=== PATIENT | female | born 1975 | race Caucasian/White ===

== ENCOUNTER 2020-11-02 06:50 | Day surgery (SDC) | payer BC ==
[~2020-11-02 06:50] MED LIST: Lactated Ringers 1,000 ML IV SCH
[2020-11-02] MEDS: CEFAZOLIN 2 GM-D5W BAG** 2 GM/50 ML ML IV SCH ×2 (07:00→07:02)
[2020-11-02] MEDS ORDERED: SUBLIMAZE 100 MCG/2 ML ONE (08:54)
[2020-11-02] MEDS ORDERED: Versed 2 MG/2 ML Injection ONE (08:54)
[2020-11-02] MEDS ORDERED: DIPRIVAN 200 MG/20 ML IV ONE (08:54)
[2020-11-02] MEDS ORDERED: Zofran 4 MG/2 ML VIAL ONE (08:56)
[2020-11-02] MEDS ORDERED: Decadron 4 MG INJ ONE (08:56)
[2020-11-02] MEDS ORDERED: TORAdol 30 mg Injection ONE (09:37)
[2020-11-02 10:22] VITALS: BP 144/91
[2020-11-02 10:40] VITALS: O2SAT 99
[2020-11-02 10:41] VITALS: PULSE 58
--- NOTE | 2020-11-03 08:09 | OP ---
SURGERY DATE/TIME: 11/02/2020 0856 PREOPERATIVE DIAGNOSIS: Menorrhagia. POSTOPERATIVE DIAGNOSIS: Menorrhagia. PROCEDURE: Hysteroscopy, D&C with NovaSure ablation. SURGEON: Ezequiel Bae D.O. 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 ANESTHESIA: General. ESTIMATED BLOOD LOSS: Minimal. COMPLICATIONS: None. INDICATIONS: The risks, benefits, indications and alternatives of the procedure were reviewed with the patient prior to the procedure. The patient understood the risk of infection, bleeding, bowel injury, bladder injury, uterine perforation, pelvic infection, thromboembolic disorder that may be associated with this procedure and desires to have this surgery as a possible means to alleviate her current medical condition. DESCRIPTION OF PROCEDURE AND FINDINGS: At this point the patient is taken to the operating room, given general sedation, placed in dorsal lithotomy position, prepped and draped in the usual sterile fashion. A weighted speculum is then placed in the patient's vagina and the anterior lip of the cervix is grasped with a single tooth tenaculum. Endocervical dilators were advanced through the endocervical canal as a means to dilate the cervix and the uterus was sounded to approximately 9 cm. From this point a 5 mm hysteroscope was then placed in through the endocervical canal where visualization of the uterine cavity appeared to be within normal limits with no gross abnormalities that we noted. From this point the hysteroscope was then removed and the curette was then placed into the fundus of the uterus and curettage is performed in all four quadrants of the uterus retrieving a mild to moderate amount of tissue. From this point hemostasis was obtained. The hysteroscope was removed. At this point the NovaSure was then measured at 6.5 cm in length. It was placed in the uterine cavity engaged with a width of 3.2 cm and at this time the machine was turned on for an approximately 35 seconds. At the completion of the ablation the arm of the NovaSure was disengaged and the instrument was removed from the uterine cavity without complication. From this point all instruments were then removed from the patient's vaginal region. The patient was then taken out of dorsal lithotomy position and was then taken to the recovery room in stable condition. All instruments and laps were accounted for x2.
== END 2020-11-02 10:35 | disposition home or self-care (01) ==
LOC: SDC 06:50
PROVIDERS: ATTEND Obstetrics & Gynecology
DX: N92.0 Excessive and frequent menstruation with regular cycle (principal)
CPT/HCPCS: 84703; 88305; J0690; J1100; J1885; J2250; J2405; J2704; J3010

== ENCOUNTER 2021-11-03 13:39 | Day surgery (SDC) | payer BC ==
--- NOTE | 2021-11-02 12:53 | HP ---
DATE OF SURGERY: 11/03/2021 HISTORY OF PRESENT ILLNESS: The patient is a 46-year-old, obese female who presents with cholelithiasis, has some occasional pain in the right upper quadrant. The patient states that this was actually incidental finding that was found on MRI of the chest. PAST MEDICAL HISTORY: Hypothyroid. PAST SURGICAL HISTORY: Shoulder surgery. Uterine ablation. Exploratory laparotomy for female surgery. ALLERGIES: NKDA. MEDICATIONS: Synthroid, vitamin D. FAMILY HISTORY: Diabetes, hypertension, lung cancer. SOCIAL HISTORY: Negative. REVIEW OF SYSTEMS: CONSTITUTIONAL: Denies fever or chills. CHEST: Denies shortness of breath. CVS: Denies chest pain. ABDOMEN: Reports occasional right upper quadrant pain. Denies nausea, vomiting, diarrhea, constipation or rectal bleeding. PHYSICAL EXAMINATION: GENERAL: No acute distress. CHEST: Nonlabored. No shortness of breath. CVS: Regular rate and rhythm. ABDOMEN: Soft, nontender. IMPRESSION: Symptomatic cholelithiasis. PLAN: Laparoscopic cholecystectomy with Dr. Woody Patiño. As dictated by Mary Knapp NP.
[~2021-11-03 13:39] MED LIST changes: +Lactated Ringers 1,000 ML IV ONE; -Lactated Ringers 1,000 ML IV SCH; +Sensorcaine 0.25% 10 ML ONE
[2021-11-03] MEDS ORDERED: Lactated Ringers 1,000 ML IV SCH (14:30)
[2021-11-03] MEDS ORDERED: MEFOXIN 2 GM PREMIX** 2 GM/50 ML ML IV ONE (14:33)
[2021-11-03] MEDS ORDERED: Lactated Ringers 1,000 ML IV ONE (14:33)
[2021-11-03] MEDS ORDERED: MEFOXIN 2 GM PREMIX** 2 GM/50 ML ML IV SCH (15:00)
[2021-11-03] MEDS ORDERED: Zemuron 100 MG/10 ML ONE (16:50)
[2021-11-03] MEDS ORDERED: Zofran 4 MG/2 ML VIAL ONE (16:50)
[2021-11-03] MEDS ORDERED: SUBLIMAZE 100 MCG/2 ML ONE ×3 (16:50→17:51)
[2021-11-03] MEDS ORDERED: BRIDION 200MG/2ML IV ONE (16:50)
[2021-11-03] MEDS ORDERED: TORAdol 30 mg Injection ONE (16:50)
[2021-11-03] MEDS ORDERED: DIPRIVAN 200 MG/20 ML IV ONE (16:50)
[2021-11-03] MEDS ORDERED: Decadron 4 MG INJ ONE (17:02)
[2021-11-03 19:22] VITALS: O2SAT 96
[2021-11-03 19:30] VITALS: BP 158/84; PULSE 77
--- NOTE | 2021-11-04 11:24 | OP ---
SURGERY DATE/TIME: 11/03/2021 1650 PREOPERATIVE DIAGNOSIS: Cholecystitis, cholelithiasis. POSTOPERATIVE DIAGNOSIS: Acute cholecystitis, cholelithiasis. PROCEDURE: Laparoscopic cholecystectomy. SURGEON: Dr. Woody Patiño. ANESTHESIA: General endotracheal tube. ESTIMATED BLOOD LOSS: None. COMPLICATIONS: None. CONDITION: Stable. INDICATIONS: A patient with symptomatic cholelithiasis. DESCRIPTION OF PROCEDURE AND FINDINGS: Taken to surgery. General anesthetic, routine prep and drape. Veress needle inserted. Opening pressure of 1, insufflating pressure 14. Gallbladder was long. Infundibulum dissected. Cystic duct defined. Cystic artery defined. Both structures triply clipped. Gallbladder rolled out of gallbladder fossa and the gallbladder was extracted. The field was clean. A 10 ILIA was placed. It was slightly raw. The hole closure device was used on the epigastric port until closure was complete. CO2 was exsufflated. Skin closed with anibal. Sterile dressing applied. The patient tolerated the procedure satisfactorily.
== END 2021-11-03 19:40 | disposition home or self-care (01) ==
LOC: SDC 13:39
PROVIDERS: ATTEND Surgery
DX: K80.00 Calculus of gallbladder with acute cholecystitis without obstruction (principal); Z79.899 Other long term (current) drug therapy
CPT/HCPCS: J0694; J1100; J1885; J2405; J2704; J3010